=== PATIENT | female | born 1965 | race Caucasian/White ===

== ENCOUNTER 2017-01-13 14:24 | Emergency (ER) | payer OTHER ==
[~2017-01-13] VITALS: Ht 162.6 cm; Wt 78.9 kg
[~2017-01-13 14:24] MED LIST: HYDR-902 PO; ONDA4TAB14 PO; OXYC-279 PO; RANI150T9 PO; TAMS-14 PO
[2017-01-13 14:31] VITALS: Ht 162.6 cm; Wt 78.9 kg
[2017-01-13] MEDS ORDERED: SOD CHLORIDE 0.9% 500 ML IV STA (16:47)
[2017-01-13] MEDS ORDERED: morphine 4 MG/ML VIAL IV STA (16:47)
[2017-01-13 17:41] LABS: ADD SCAN DIFF NO
[2017-01-13 17:43] LABS: ADD UMIC YES; BASOPHIL # 0.1 10^3/ul (0.0-0.1); BASOPHILS % 1.1 % (0.0-2.0); EOSINOPHILS # 0.3 10^3/ul (0.0-0.5); EOSINOPHILS % 4.1 % (0.0-7.0); HEMATOCRIT 41.5 % (37.0-47.0); HEMOGLOBIN 13.6 g/dl (12.0-16.0); LYMPHOCYTES # 2.1 10^3/ul (0.8-2.9); MEAN CORPUSCULAR HEMOGLOBIN 29.8 pg (29.0-33.0); MEAN CORPUSCULAR HGB CONC 32.8 g/dl (32.0-37.0); MEAN CORPUSCULAR VOLUME 90.8 fl (82.0-101.0); MEAN PLATELET VOLUME 12.3 fl (7.4-10.4); MONOCYTE # 0.5 10^3/ul (0.3-0.9); MONOCYTES % 5.7 % (0.0-11.0); NEUTROPHIL # 5.3 10^3/ul (1.6-7.5); NEUTROPHILS % 63.7 % (39.0-77.0); PLATELET COUNT 266 10^3/UL (140-415); RED BLOOD COUNT 4.57 10^6/ul (4.20-5.40); RED CELL DISTRIBUTION WIDTH 12.3 % (11.5-14.5); URINE BILIRUBIN (Dip) NEGATIVE (NEGATIVE); URINE BLOOD (Dip) TRACE (NEGATIVE); URINE COLOR LT. YELLOW (YELLOW); URINE GLUCOSE (Dip) NEGATIVE (NEGATIVE); URINE KETONES (Dip) NEGATIVE (NEGATIVE); URINE LEUKOCYTE ESTERASE (Dip) NEGATIVE (NEGATIVE); URINE NITRITE (Dip) NEGATIVE (NEGATIVE); URINE TOTAL PROTEIN (Dip) NEGATIVE (NEGATIVE); URINE UROBILINOGEN (Dip) 0.2 E.U./dL (0.1-1.0); WHITE BLOOD COUNT 8.4 10^3/ul (4.8-10.8)
[2017-01-13 17:49] LABS: BACTERIA,URINE RARE
[2017-01-13 18:03] LABS: ALBUMIN 4.9 g/dl (3.3-4.9); ALBUMIN/GLOBULIN RATIO 1.48; BILIRUBIN,INDIRECT 0.4 mg/dl (0-1.1); BILIRUBIN,TOTAL 0.4 mg/dl (0.2-1.3); CALCIUM 8.9 mg/dl (8.4-10.2); CREATININE 0.69 mg/dl (0.44-1.00); POTASSIUM 4.8 mmol/L (3.5-5.1); TOTAL PROTEIN 8.2 g/dl (6.1-8.1)
--- NOTE | 2017-01-13 18:22 | RADRPT ---
PROCEDURE: US Pelvis CLINICAL INDICATION: bliat "ovarian" pain x 3 TECHNIQUE: Multiple sonographic images of the pelvis were obtained utilizing a transabdominal and endovaginal technique. The images were reviewed on a PACS workstation. COMPARISON: None. FINDINGS: The uterus is retroverted and measures 7.5 x 4.1 x 5.9 cm. The endometrial echo complex measures 3 mm in thickness. The uterus is heterogeneous and the junctional zone between the endometrium and my ometrium is indistinct. Multiple Nabothian cysts, some with complex fluid, are identified measuring up to 1.5 cm. The right ovary measures 3.5 x 1.7 x 2.6 cm. The left ovary measures 2.7 x 1.5 x 2.3 cm. There is no rmal vascular flow in both ovaries. There is a 1.5 cm simple cystic lesion in the left ovary which i s likely a follicle. No significant pelvic free fluid is identified. IMPRESSION: The uterus is heterogeneous and the junctional zone between the endometrium and myometrium is indist inct. Clinical correlation for adenomyosis is recommended. Multiple Nabothian cysts, some with complex fluid, are identified measuring up to 1.5 cm which are o f equivocal clinical significance. RPTAT: EE Physician Junaid Date Time Electronically viewed and signed by Physician Junaid on 01/13/2017 18:22 /
[2017-01-13] MEDS ORDERED: IBUP800T25 PO (19:29)
[2017-01-13] MEDS ORDERED: MULT1CAP20 PO (19:29)
[2017-01-13] MEDS ORDERED: OMEP40CA6 PO (19:29)
[2017-01-13] MEDS ORDERED: NAPR-688 PO (21:21)
[2017-01-13] MEDS ORDERED: HYDR-906 PO (21:21)
[2017-01-13] MEDS ORDERED: KETOROLAC 30 MG INJ IV STA (21:28)
--- NOTE | 2017-01-13 22:08 | ERD ---
ER Documentation Chief Complaint Date/Time DATE: 01/13/17 TIME: 22:04 Chief Complaint AP X 3 DAYS HPI This 51-year-old female is actually had bilateral pelvic pain for a couple of weeks. It has gotten worse in the last few days. The pain is bilateral and she does not have any suprapubic pain or pain in the middle but has it in her bilateral area where she says her ovaries are. She has no fevers or chills. She has had no nausea and vomiting. No vaginal discharge. Only the pain. ROS All systems reviewed and are negative except as per history of present illness. Medications Home Meds Active Scripts Hydrocodone/Acetaminophen ([place] 5-325 Tablet) 1 Each Tablet, 1 EACH PO Q6, #7 TAB Prov:JOSE MANUEL PRATHER DO 01/13/17 Naproxen* (Naproxen*) 500 Mg Tablet, 500 MG PO BID Y for PAIN, #20 TAB Prov:JOSE MANUEL PRATHER DO 01/13/17 Reported Medications Multivitamin (Multivitamins) 1 Each Capsule, 1 EACH PO, CAP 01/13/17 Omeprazole* (Omeprazole*) 40 Mg Capsule.dr, 40 MG PO QAM, #30 CAP 01/13/17 Ibuprofen* (Ibuprofen*) 800 Mg Tab, 800 MG PO Q6H Y for PAIN, TAB 01/13/17 Discontinued Scripts Oxycodone HCl/Acetaminophen (Percocet 5-325 mg Tablet) 1 Each Tablet, 1 EACH PO Q8 for PAIN LEVEL 8-10, #15 TAB Prov:JAYY CHICAS DO 05/17/16 Ranitidine Hcl* (Zantac*) 150 Mg Tablet, 150 MG PO BID Y for EPIGASTRIC PAIN, # 30 TAB Prov:JAYY CHICAS DO 05/17/16 Ondansetron (Ondansetron Odt) 4 Mg Tab.rapdis, 4 MG PO Q6H Y for NAUSEA AND/OR VOMITING, #10 TAB Prov:DHARA HILLMANSTMT A. DO 05/12/16 Tamsulosin Hcl* (Flomax*) 0.4 Mg Cap.er.24h, 0.4 MG PO BID, #14 CAP Prov:KADYAPOSTOLOS A. DO 05/12/16 Hydrocodone/Acetaminophen ([place] 10-325 Tablet) 1 Each Tablet, 1 TAB PO Q6H Y for PAIN, #20 TAB Prov:ИВАН HILLMAN DO 05/12/16 Allergies Allergies: Coded Allergies: aspirin (Verified Allergy, Unknown, 05/17/16) PMhx/Soc History of Surgery: Yes (cholecystectomy, , R hip sx) Anesthesia Reaction: No Hx Neurological Disorder: No Hx Respiratory Disorders: No Hx Cardiac Disorders: No Hx Psychiatric Problems: No Hx Miscellaneous Medical Probl: Yes (Kidney stone) Hx Alcohol Use: No Hx Substance Use: No Hx Tobacco Use: No Smoking Status: Never smoker Physical Exam Vitals Vital Signs Date Time Temp Pulse Resp B/P Pulse Ox O2 Delivery O2 Flow Rate FiO2 01/13/17 17:25 77 18 135/65 99 01/13/17 14:31 98.3 80 18 130/78 99 Physical Exam Const: [] No distress Head: Atraumatic Eyes: Normal Conjunctiva ENT: Normal External Ears, Nose and Mouth. Resp: Clear to auscultation bilaterally Cardio: Regular rate and rhythm, no murmurs Abd: Soft, mild bilateral pelvic tenderness with no central tenderness, no guarding rebound, no other abdominal tenderness, non distended. Normal bowel sounds Skin: No petechiae or rashes Back: No midline or flank tenderness Ext: No cyanosis, or edema Neur: Awake and alert and oriented 3, no focal deficits Psych: Normal Mood and Affect Result Diagram: 01/13/17 1710 01/13/17 1710 Results 24 hrs Laboratory Tests Test 01/13/17 17:10 White Blood Count 8.410^3/ul Red Blood Count 4.5710^6/ul Hemoglobin 13.6g/dl Hematocrit 41.5% Mean Corpuscular Volume 90.8fl Mean Corpuscular Hemoglobin 29.8pg Mean Corpuscular Hemoglobin Concent 32.8g/dl Red Cell Distribution Width 12.3% Platelet Count 50033^3/UL Mean Platelet Volume 12.3fl Neutrophils % 63.7% Lymphocytes % 25.0% Monocytes % 5.7% Eosinophils % 4.1% Basophils % 1.1% Nucleated Red Blood Cells % 0.0/100WBC Neutrophils # 5.310^3/ul Lymphocytes # 2.110^3/ul Monocytes # 0.510^3/ul Eosinophils # 0.310^3/ul Basophils # 0.110^3/ul Nucleated Red Blood Cells # 0.010^3/ul Urine Color LT. YELLOW Urine Clarity CLEAR Urine pH 5.0 Urine Specific Daisy 1.025 Urine Ketones NEGATIVE Urine Nitrite NEGATIVE Urine Bilirubin NEGATIVE Urine Urobilinogen 0.2 E.U./dL Urine Leukocyte Esterase NEGATIVE Urine Microscopic RBC 5-10/HPF Urine Microscopic WBC 0-2/HPF Urine Bacteria RARE Urine Hemoglobin TRACE Urine Glucose NEGATIVE% Urine Total Protein NEGATIVE Sodium Level 142mmol/L Potassium Level 4.8mmol/L Chloride Level 110mmol/L Carbon Dioxide Level 22mmol/L Anion Gap 15 Blood Urea Nitrogen 16mg/dl Creatinine 0.69mg/dl Glucose Level 112mg/dl Calcium Level 8.9mg/dl Total Bilirubin 0.4mg/dl Direct Bilirubin 0.00mg/dl Indirect Bilirubin 0.4mg/dl Aspartate Amino Transf (AST/SGOT) 33IU/L Alanine Aminotransferase (ALT/SGPT) 28IU/L Alkaline Phosphatase 72IU/L Total Protein 8.2g/dl Albumin 4.9g/dl Globulin 3.30g/dl Albumin/Globulin Ratio 1.48 Lipase 79U/L Current Medications Medications (Trade) Dose Ordered Sig/Beth Route PRN Reason Start Time Stop Time Status Last Admin Dose Admin Sodium Chloride (NS) 500 ml @ 500 mls/hr Q1H STAT IV 01/13/17 16:47 01/13/17 17:46 DC 01/13/17 17:20 Morphine Sulfate (morphine) 4 mg ONCE STAT IV 01/13/17 16:47 01/13/17 16:54 DC 01/13/17 17:20 Ketorolac Tromethamine (Toradol) 30 mg ONCE STAT IV 01/13/17 21:28 01/13/17 21:48 DC Procedures/MDM Bilateral pelvic pain with multiple nabothian cysts. Patient has no signs for serious systemic infection. No evidence of UTI. She is feeling much better the emergency room after 4 mg of morphine. I did give her Toradol as well. Discharge her with instructions for obtaining gynecological follow-up. I am also discharging with naproxen for pain. She is otherwise stable and I have low concern for PID. Pelvic ultrasound interpretation: Unclear transition zone in endometrium possible concern for adenomyosis, multiple nabothian cysts. Good blood flow to bilateral ovaries Departure Diagnosis: Primary Impression: Nabothian cyst Additional Impression: Acute pain in female pelvis Condition: Stable Patient Instructions: Pelvic Pain, Unknown Cause Referrals: [facility] (PCP) Additional Instructions: Llame al doctor MAANA y zahra ray ANMOL PARA DENTRO DE 2-3 HALL. Consigue un referral para un GYNOCOLOGIST. Dgale a la secretaria que nosotros le instruimos hacer esta anmol.Avise o llame si irby condicin se empeora antes de la anmol. Regresa aqui si peor o no mejor. JOSE MANUEL PRATHER DO Jan 13, 2017 22:08
[2017-01-13 22:11] VITALS: BP 160/89; PULSE 88; RESP 18; TEMP 98
== END 2017-01-13 22:12 | disposition home or self-care (01) ==
LOC: E/R 14:24
DX: N88.8 Other specified noninflammatory disorders of cervix uteri (principal)
CPT/HCPCS: 76830; 76856; 80053; 81001; 83690; 85025; J2270; J7040; 36415; 96374

== ENCOUNTER 2017-06-20 09:29 | Emergency (ER) | payer OTHER ==
[~2017-06-20] VITALS: Ht 165.1 cm; Wt 77.2 kg
[~2017-06-20 09:29] MED LIST changes: -HYDR-902 PO; +HYDR-906 PO; +IBUP800T25 PO; +MULT1CAP20 PO; +NAPR-688 PO; +OMEP40CA6 PO; -ONDA4TAB14 PO; -OXYC-279 PO; -RANI150T9 PO; -TAMS-14 PO
[2017-06-20 09:31] VITALS: Ht 165.1 cm; Wt 77.2 kg
[2017-06-20] MEDS ORDERED: ONDANSETRON (ODT) 4 MG TAB ODT STA (09:57)
[2017-06-20] MEDS ORDERED: HYDROCODONE/APAP (10/325) TAB PO ONE (10:00)
[2017-06-20 10:34] LABS: ADD UMIC YES; UR ASCORBIC ACID NEGATIVE (NEGATIVE); UR BACTERIA FEW /HPF (NONE SEEN); UR BILIRUBIN (Dip) NEGATIVE (NEGATIVE); UR BLOOD (Dip) 1+ mg/dL (NEGATIVE); UR CLARITY SLIGHTLY CLOUDY (CLEAR); UR COLOR YELLOW (YELLOW); UR GLUCOSE (Dip) NEGATIVE (NEGATIVE); UR KETONES (Dip) NEGATIVE (NEGATIVE); UR LEUKOCYTE ESTERASE (Dip) TRACE Leu/ul (NEGATIVE); UR MUCUS MODERATE /HPF (NONE SEEN); UR NITRITE (Dip) NEGATIVE (NEGATIVE); UR RBC 1 /HPF (0-5); UR SPECIFIC GRAVITY (Dip) 1.021 (1.003-1.030); UR SQUAMOUS EPITHELIAL CELL MODERATE /HPF (FEW); UR TOTAL PROTEIN (Dip) NEGATIVE (NEGATIVE); UR UROBILINOGEN (Dip) 1+ mg/dL (NEGATIVE)
--- NOTE | 2017-06-20 11:12 | RADRPT ---
PROCEDURE: CT ABDOMEN AND PELVIS WITHOUT CONTRAST. CLINICAL INDICATION: Abdominal pain TECHNIQUE: CT scan of the abdomen and pelvis without contrast was performed on a multidetector hig h-resolution CT scanner. The patient was scanned without intravenous contrast. Coronal and sagittal reformatted images were obtained from the axial source images. Images were reviewed on a high-resol [employer] PACS workstation. The total exam CTDI equals 15 mGy and the total exam DLP equals 836 mGy-cm. One or more of the following dose reduction techniques were used: Automated exposure control. Adjustment of the mA and/or kV according to patient size. Use of iterative reconstruction technique. DICOM images are available COMPARISON: CT 05/15/2016 FINDINGS: CT abdomen: Right lower lobe calcified granulomas noted. Lung bases are clear. Heart size is within normal limit s. There is no significant pericardial effusion. Hepatic morphology is within limits. No gross contour deforming masses. Status post cholecystectomy. Small foci of air is noted within the common bile duct. The spleen and pancreas are within normal limits. Both adrenal glands are within normal limits. Both kidneys are in normal anatomic position. No evidence of obstruction or hydronephrosis. No gross renal/ureteric calculi. The visualized GI tract demonstrate normal caliber loops of small and large bowel. No evidence of nathalia wel obstruction. The appendix is within normal limits. The unenhanced aorta is unremarkable. No significant retroperitoneal lymphadenopathy. CT pelvis: The bladder is within normal limits. There is a fat-containing right inguinal hernia. The uterus is retroverted. The rectosigmoid colon is within limits. No significant free fluid. No significant pelv ic lymphadenopathy. The visualized osseous structures demonstrates right hip hardware and sclerosis of the bilateral SI joints. Multilevel degenerative disease of the lumbosacral spine is noted. The visualized osseous structures appear to be within normal limits. IMPRESSION: 1. Status post cholecystectomy. Small foci of air is noted within the common bile duct, stable since prior exam. 2. No evidence of acute intra-abdominal/pelvic inflammatory process. No evidence of bowel. The appen michael is within limits. 3. No gross renal/ureteric calculi. No obstruction or hydronephrosis. 4. No free fluid or free air. No gross focal fluid collections. 5. Fat-containing right inguinal hernia. Otherwise, unremarkable unenhanced CT scan of the abdomen/p annette. RPTAT: AAPP Indra Hussein, Physician Date Time Electronically viewed and signed by Indra Hussein Physician on 06/20/2017 11:11 JL/
[2017-06-20] MEDS ORDERED: HYDR-902 PO (11:39)
[2017-06-20] MEDS ORDERED: ONDA4TAB14 PO (11:39)
--- NOTE | 2017-06-20 13:44 | ERD ---
ER Documentation Chief Complaint Chief Complaint Complaqins of abdominal pain x 3 days HPI Patient is a 52-year-old female with kidney stones who presents with abdominal pain. The patient had the symptoms for the past 15 days. The patient makes a little bit of blood in the urine. The patient has had fever that started on Friday and lasted 2 days but has not had fever for the past few days. She tried Tylenol and ibuprofen. The pain is constant. Upon review of old medical records the patient has had 11 visits since 2014 for pain complaints. She does have a primary doctor. ROS All systems reviewed and are negative except as per history of present illness. Medications Home Meds Active Scripts Ondansetron (Ondansetron Odt) 4 Mg Tab.rapdis, 4 MG PO Q6H Y for NAUSEA AND/OR VOMITING, #10 TAB Prov:RAMONITA HUFFMAN MD 06/20/17 Hydrocodone/Acetaminophen ([place] 10-325 Tablet) 1 Each Tablet, 1 TAB PO Q6H Y for PAIN, #7 TAB Prov:RAMONITA HUFFMAN MD 06/20/17 Hydrocodone/Acetaminophen ([place] 5-325 Tablet) 1 Each Tablet, 1 EACH PO Q6, #7 TAB Prov:JOSE MANUEL PRATHER DO 01/13/17 Naproxen* (Naproxen*) 500 Mg Tablet, 500 MG PO BID Y for PAIN, #20 TAB Prov:JOSE MANUEL PRATHER DO 01/13/17 Reported Medications Multivitamin (Multivitamins) 1 Each Capsule, 1 EACH PO, CAP 01/13/17 Omeprazole* (Omeprazole*) 40 Mg Capsule.dr, 40 MG PO QAM, #30 CAP 01/13/17 Ibuprofen* (Ibuprofen*) 800 Mg Tab, 800 MG PO Q6H Y for PAIN, TAB 01/13/17 Allergies Allergies: Coded Allergies: aspirin (Verified Allergy, Unknown, 05/17/16) PMhx/Soc History of Surgery: Yes (cholecystectomy, , R hip sx) Anesthesia Reaction: No Hx Neurological Disorder: No Hx Respiratory Disorders: No Hx Cardiac Disorders: No Hx Psychiatric Problems: No Hx Miscellaneous Medical Probl: Yes (Kidney stone) Hx Alcohol Use: No Hx Substance Use: No Hx Tobacco Use: No Smoking Status: Never smoker FmHx Family History: diabetes Physical Exam Vitals Vital Signs Date Time Temp Pulse Resp B/P Pulse Ox O2 Delivery O2 Flow Rate FiO2 06/20/17 09:31 98.7 105 20 130/78 96 Physical Exam Const: Moderate distress secondary to pain Head: Atraumatic Eyes: Normal Conjunctiva ENT: Normal External Ears, Nose and Mouth. Neck: Full range of motion..~ No meningismus. Resp: Clear to auscultation bilaterally Cardio: Regular rate and rhythm, no murmurs Abd: Soft, non tender, non distended. Normal bowel sounds Skin: No petechiae or rashes Back: No midline or flank tenderness Ext: No cyanosis, or edema Neur: Awake and alert Psych: Normal Mood and Affect Results 24 hrs Laboratory Tests Test 06/20/17 10:00 Urine Color YELLOW Urine Clarity SLIGHTLY CLOUDY Urine pH 5.0 Urine Specific [place] 1.021 Urine Ketones NEGATIVEmg/dL Urine Nitrite NEGATIVEmg/dL Urine Bilirubin NEGATIVEmg/dL Urine Urobilinogen 1+mg/dL Urine Leukocyte Esterase TRACELeu/ul Urine Microscopic RBC 1/HPF Urine Microscopic WBC 3/HPF Urine Squamous Epithelial Cells MODERATE/HPF Urine Bacteria FEW/HPF Urine Mucus MODERATE/HPF Urine Hemoglobin 1+mg/dL Urine Glucose NEGATIVEmg/dL Urine Total Protein NEGATIVEmg/dl Current Medications Medications (Trade) Dose Ordered Sig/Beth Route PRN Reason Start Time Stop Time Status Last Admin Dose Admin Acetaminophen/ Hydrocodone Bitart ([place]ino[place] (10325)) 1 tab ONCE ONCE PO 06/20/17 10:00 06/20/17 10:01 DC 06/20/17 10:01 Ondansetron HCl (Zofran Odt) 4 mg ONCE STAT ODT 06/20/17 09:57 06/20/17 09:58 DC 06/20/17 10:01 Procedures/MDM CT abdomen pelvis shows no acute abnormality per radiology. Patient is a 52-year-old female who presents with abdominal pain. Urinalysis shows no sign of obvious infection and CT abdomen pelvis shows no sign of kidney stone or bowel obstruction. I doubt cholecystitis, pancreatitis, appendicitis, or bowel obstruction. I believe outpatient management is appropriate. The patient can return for any worsening symptoms. She will be given a prescription for pain and nausea medications. She can return for any worsening symptoms. She should follow-up with primary doctor within 24 hours. Departure Diagnosis: Primary Impression: Abdominal pain Abdominal location: generalized Qualified Code: R10.84 - Generalized abdominal pain Condition: Fair Patient Instructions: Abdominal Pain Referrals: [facility] (PCP) Additional Instructions: Llame al doctor MAANA y zahra ray ANMOL PARA DENTRO DE 1-2 HALL.Dgale a la secretaria que nosotros le instruimos hacer esta anmol.Avise o llame si irby condicin se empeora antes de la anmol. Regresa aqui si peor o no mejor. RAMONITA HUFFMAN MD Jun 20, 2017 13:44
== END 2017-06-20 12:03 | disposition home or self-care (01) ==
LOC: E/R 09:29
DX: R10.84 Generalized abdominal pain (principal)
CPT/HCPCS: 74176; 81001; Z7502; Z7610

== ENCOUNTER 2017-09-06 00:42 | Emergency (ER) | END 2017-09-06 05:44 | disposition home or self-care (01) ==

== ENCOUNTER 2018-06-18 09:30 | Inpatient (IN) | payer OTHER ==
[~2018-06-18] VITALS: Ht 157.5 cm; Wt 75.0 kg
[~2018-06-18 09:30] MED LIST changes: +ACET325T33 PO; +AMLO5TAB4 PO; +ASPI-817 PO; +BUPIVACAINE 0.5% (SDV) 30 ML, morphine SULFATE (PF) 8 MG, EPINEPHrine 0.3 MG, KETOROLAC... IRR SCH; +CEFAZOLIN 2 GM/50 ML (PMX) 50 ML IVPB ONE; +CEPH500C PO; +D-ME473S2 PO; +DEXAMETHASONE 1 MG TAB PO ONE; +GABAPENTIN 300 MG CAP PO ONE; -HYDR-906 PO; +IBUP-1542 PO; -IBUP800T25 PO; +LACT1CAP28 PO; +LOSA25TA12 PO; +MECL12.574 PO; +METF-849 PO; -NAPR-688 PO; -OMEP40CA6 PO; +RANI150T5 PO; +SOD CHLORIDE 0.9% 100 ML, TRANEXAMIC ACID 3,000 MG IRR ONE; +TRANEXAMIC ACID 1,000 MG in DEXTROSE 5% 100 ML IVPB ONE; +traMADol 50 MG TAB PO ONE
[2019-06-02] MEDS ORDERED: TRANEXAMIC ACID 1GM/100ML(PMX) 100 ML IVPB ONE (06:00)
[2019-06-03] VITALS (23 sets, daily range): BP systolic 95–138; BP diastolic 60–81; PULSE 60–102; RESP 9–18; Ht 157.5 cm; Wt 75.0 kg
[2019-06-03] MEDS ORDERED: DEXAMETHASONE 1 MG TAB PO SCH (06:00)
[2019-06-03] MEDS: LACTATED RINGER'S 1,000 ML IV SCH ×3 (06:00→23:54)
[2019-06-03] MEDS ORDERED: SOD CHLORIDE 0.9% 100 ML, TRANEXAMIC ACID 3,000 MG IRR SCH ×2 (06:00)
[2019-06-03] MEDS ORDERED: BUPIVACAINE 0.5% (SDV) 30 ML, morphine SULFATE (PF) 8 MG, EPINEPHrine 0.3 MG, KETOROLAC... IRR SCH ×7 (06:00)
[2019-06-03] MEDS ORDERED: GABAPENTIN 300 MG CAP PO SCH ×2 (06:00→21:00)
[2019-06-03] MEDS ORDERED: CEFAZOLIN 2 GM/50 ML (PMX) 50 ML IVPB SCH (06:00)
[2019-06-03] MEDS ORDERED: DESFLURANE 15 MIN ONE (07:00)
[2019-06-03] MEDS ORDERED: traMADol 50 MG TAB ONE (10:14)
[2019-06-03] MEDS ORDERED: traMADol 50 MG TAB PO ONE (10:30)
[2019-06-03] MEDS ORDERED: CA CHLORIDE 10% 10 ML SYRINGE ONE (10:54)
[2019-06-03] MEDS ORDERED: POLYMYXIN/BACITRACIN 1L IRRIG ONE (10:54)
[2019-06-03] MEDS ORDERED: THROMBIN 5000 UNIT (RECOTHROM) VIAL ONE (10:54)
[2019-06-03] MEDS ORDERED: GLYCOPYRROLATE 0.4 MG INJ ONE (11:09)
[2019-06-03] MEDS ORDERED: ROCURONIUM 50 MG INJ ONE (11:09)
[2019-06-03] MEDS ORDERED: PROPOFOL 20 ML ONE (11:09)
[2019-06-03] MEDS ORDERED: NEOSTIGMINE 3 MG/3 ML SYRINGE ONE (11:09)
[2019-06-03] MEDS ORDERED: CEFAZOLIN 1 GM INJ ONE (11:09)
[2019-06-03] MEDS ORDERED: morphine SULFATE/PF (10 MG/10 ML) INJ ONE (11:10)
[2019-06-03] MEDS ORDERED: FENTAnyl 50 MCG/ML VIAL ONE (11:10)
[2019-06-03] MEDS ORDERED: ONDANSETRON 4 MG INJ ONE (11:10)
[2019-06-03] MEDS ORDERED: DEXAMETHASONE 4 MG/ML 5 ML INJ ONE (11:10)
[2019-06-03] MEDS ORDERED: MIDAZOLAM 1 MG/ML 2 ML INJ ONE (11:10)
[2019-06-03] MEDS ORDERED: SUGAMMADEX SODIUM 200 MG/2 ML VIAL IV ONE (11:12)
[2019-06-03] MEDS ORDERED: TRANEXAMIC ACID 1GM/100ML(PMX) 200 ML ONE (12:05)
[2019-06-03] MEDS ORDERED: NACL 0.9% 3 ML SYG IV SCH (14:00)
[2019-06-03] MEDS ORDERED: MAGNESIUM HYDROXIDE 30ML CUP PO PRN (14:00)
[2019-06-03] MEDS ORDERED: DIPHENHYDRAMINE 50 MG INJ IV PRN (14:00)
[2019-06-03] MEDS ORDERED: HYDROmorphONE 1 MG/ML SYG IV PRN (14:00)
[2019-06-03] MEDS ORDERED: RANITIDINE 150 MG TAB PO PRN ×2 (14:00)
[2019-06-03] MEDS ORDERED: ZOLPIDEM 5 MG TAB PO PRN (14:00)
[2019-06-03] MEDS ORDERED: oxyCODONE 5 MG TAB PO PRN ×3 (14:00)
[2019-06-03] MEDS ORDERED: ONDANSETRON 4 MG INJ IV PRN (14:00)
[2019-06-03] MEDS ORDERED: GLUCAGON 1 MG INJ IM PRN (14:30)
[2019-06-03] MEDS ORDERED: GLUCOSE GEL 15 GRAM TUBE BUCCAL PRN (14:30)
[2019-06-03] MEDS ORDERED: DEXTROSE 50% 50 ML SYRINGE IV PRN ×2 (14:30)
[2019-06-03] MEDS ORDERED: GLUCOSE GEL 15 GRAM TUBE PO PRN ×2 (14:30)
[2019-06-03] MEDS: CEFAZOLIN 1 GM/50 ML (PMX) 50 ML IVPB SCH ×2 (14:41→21:10)
[2019-06-03] MEDS: ACETAMINOPHEN 1000MG/100ML IV 100 ML IVPB SCH ×2 (14:41→21:09)
[2019-06-03] MEDS: ACCU-CHEK XX SCH (17:47)
[2019-06-03] MEDS: DEXAMETHASONE 2 MG TAB PO SCH (17:53)
[2019-06-03] MEDS: metFORMIN 500 MG TAB PO SCH (17:53)
[2019-06-03] MEDS: SENNA/DOCUSATE NA (8.6MG/50MG) TAB PO SCH (20:20)
[2019-06-04] MEDS: DEXAMETHASONE 2 MG TAB PO SCH ×3 (00:06→11:54)
[2019-06-04 00:47] VITALS: BP 92/52; PULSE 60; RESP 18
[2019-06-04] MEDS: LACTATED RINGER'S 1,000 ML IV SCH ×2 (02:19→06:00)
[2019-06-04] MEDS: CEFAZOLIN 1 GM/50 ML (PMX) 50 ML IVPB SCH (05:08)
[2019-06-04] MEDS: ACETAMINOPHEN 1000MG/100ML IV 100 ML IVPB SCH (05:10)
[2019-06-04] MEDS: ACCU-CHEK XX SCH ×2 (07:43→18:09)
[2019-06-04 07:54] VITALS: BP 100/61; PULSE 66; RESP 17
[2019-06-04] MEDS: metFORMIN 500 MG TAB PO SCH ×2 (08:33→18:09)
[2019-06-04] MEDS: SENNA/DOCUSATE NA (8.6MG/50MG) TAB PO SCH (08:33)
[2019-06-04 08:36] VITALS: BP 108/64; PULSE 83; RESP 18
[2019-06-04] MEDS ORDERED: AMLODIPINE 5 MG TAB PO SCH (09:00)
[2019-06-04] MEDS ORDERED: ASPIRIN (EC) 325 MG TAB PO SCH (09:00)
[2019-06-04] MEDS ORDERED: LOSARTAN 25 MG TAB PO SCH ×2 (09:00)
[2019-06-05] MEDS ORDERED: MAGNESIUM HYDROXIDE 30ML CUP PO SCH (21:00)
== END 2019-06-04 19:23 | disposition home or self-care (01) | DRG 470 ==
LOC: EDSTATUS 09:30 → REC 06-03 08:11 → MS1 06-03 15:30
PROVIDERS: ADMIT Orthopaedic Surgery; ATTEND Orthopaedic Surgery
PROC: 0SP904Z Removal of Internal Fixation Device from Right Hip Joint, Open Approach (ICD-10-PCS; 2019-06-03)
PROC: 0SR904A Replacement of Right Hip Joint with Ceramic on Polyethylene Synthetic Substitute, Uncemented, Open Approach (ICD-10-PCS; principal; 2019-06-03 12:00)
DX: M16.51 Unilateral post-traumatic osteoarthritis, right hip (principal); I10 Essential (primary) hypertension; E11.9 Type 2 diabetes mellitus without complications; K21.9 Gastro-esophageal reflux disease without esophagitis
CPT/HCPCS: 72170; 73530; 82962; 85025; 86999; 87086; 88300; 88304; 88311; 97116; 97162; 97530; C1713; C1776; J0131; J0171; J0690; J0735; J1100; J1885; J2250; J2274; J2405; J2710; J3010; J3370; J7120

== ENCOUNTER 2018-12-25 13:57 | Emergency (ER) | payer OTHER ==
[~2018-12-25] VITALS: Ht 162.6 cm; Wt 77.3 kg
[~2018-12-25 13:57] MED LIST changes: -ACET325T33 PO; -AMLO5TAB4 PO; -ASPI-817 PO; -BUPIVACAINE 0.5% (SDV) 30 ML, morphine SULFATE (PF) 8 MG, EPINEPHrine 0.3 MG, KETOROLAC... IRR SCH; -CEFAZOLIN 2 GM/50 ML (PMX) 50 ML IVPB ONE; -CEPH500C PO; -DEXAMETHASONE 1 MG TAB PO ONE; -GABAPENTIN 300 MG CAP PO ONE; -IBUP-1542 PO; -LACT1CAP28 PO; -LOSA25TA12 PO; -MECL12.574 PO; -METF-849 PO; -RANI150T5 PO; -SOD CHLORIDE 0.9% 100 ML, TRANEXAMIC ACID 3,000 MG IRR ONE; -TRANEXAMIC ACID 1,000 MG in DEXTROSE 5% 100 ML IVPB ONE; -traMADol 50 MG TAB PO ONE
[2018-12-25 14:00] VITALS: BP 160/76; PULSE 94; RESP 17; Ht 162.6 cm; Wt 77.3 kg
[2018-12-25] MEDS ORDERED: MECL12.574 PO ×2 (16:20→16:25)
--- NOTE | 2018-12-25 16:24 | ERD ---
ER Documentation Chief Complaint Chief Complaint DIZZINESS X2 DAYS, HEADACHE HPI Patient is a 53-year-old female with hypertension who presents with dizziness. She feels like the room is spinning. She said the symptoms for the past 2 days. It comes and goes and is worse with moving her head. She felt like she might fall. She has had no treatment as of yet. She was scared last night because the dizziness which made her come to the ER. Upon review of old medical records the patient has had multiple visits to the ER for various complaints. She does not remember the name of her primary doctor. ROS All systems reviewed and are negative except as per history of present illness. Medications Home Meds Active Scripts Meclizine Hcl* (Antivert*) 12.5 Mg Tab, 25 MG PO Q6H PRN for DIZZINESS, #20 TAB Prov:RAMONITA HUFFMAN MD 12/25/18 Meclizine Hcl* (Antivert*) 12.5 Mg Tab, 25 MG PO Q6H PRN for DIZZINESS, #20 TAB Prov:RAMONITA HUFFMAN MD 12/25/18 Dextromethorphan Hb-Promethazine Hcl* (Promethazine DM* Syrup) 473 Ml Syrup, 10 ML PO Q6 PRN for COUGH, #120 ML Prov:EVIE GAINES MD 09/06/17 Reported Medications Multivitamin (Multivitamins) 1 Each Capsule, 1 EACH PO, CAP 01/13/17 Allergies Allergies: Coded Allergies: aspirin (Unverified Allergy, Unknown, CAN'T BREATHE, 06/17/18) PT CAN'T BREATHE WITH ASPIRIN/ROHAN AT MD OFFICE PMhx/Soc History of Surgery: Yes (cholecystectomy, , R hip sx) Anesthesia Reaction: No Hx Neurological Disorder: No Hx Respiratory Disorders: No Hx Cardiac Disorders: No Hx Psychiatric Problems: No Hx Miscellaneous Medical Probl: Yes (Kidney stone/ pre-diabetes) Hx Alcohol Use: No Hx Substance Use: No Hx Tobacco Use: No FmHx Family History: diabetes Physical Exam Vitals Vital Signs Date Temp Pulse Resp B/P (MAP) Pulse Ox O2 O2 Flow FiO2 Time Delivery Rate 12/25/18 98.3 94 17 160/76 98 14:00 (104) Physical Exam Const: No acute distress Head: Atraumatic Eyes: Normal Conjunctiva ENT: Normal External Ears, Nose and Mouth. Neck: Full range of motion. No meningismus. Resp: Clear to auscultation bilaterally Cardio: Regular rate and rhythm, no murmurs Abd: Soft, non tender, non distended. Normal bowel sounds Skin: No petechiae or rashes Back: No midline or flank tenderness Ext: No cyanosis, or edema Neur: Awake and alert, cranial nerves II through XII are intact, strength is 5 out of 5 in all 4 extremities, no slurred speech, no pronator drift Psych: Normal Mood and Affect Results 24 hrs Current Medications Medications Dose Sig/Beth Start Time Status Last (Trade) Ordered Route PRN Stop Time Admin Dose Reason Admin Meclizine 25 mg ONCE ONCE 12/25/18 DC 12/25/18 HCl PO 16:30 16:35 (Antivert) 12/25/18 16:32 Procedures/MDM EKG read by me: Rate/Rhythm: Regular rate and rhythm at a rate of 84 Intervals: Normal Impression: No evidence of ischemia or arrhythmia Patient is a 53-year-old female who presents with dizziness. Her symptoms are consistent with vertigo. EKG is normal. I doubt acute coronary syndrome or stroke. I believe the risk of doing a CT scan of the brain outweigh the benefits. The patient will be discharged with prescription for meclizine. She will need to follow-up with her primary doctor however within 24 to 48 hours for reevaluation. She can return for any worsening symptoms. Departure Diagnosis: Primary Impression: Dizziness Condition: Fair Patient Instructions: Dizziness (Vertigo) and Balance Problems: Ensuring Your Safety, Dizziness, Unk Cause Referrals: [facility] (PCP) Additional Instructions: Llame al doctor MAANA y zahra ray ANMOL PARA DENTRO DE 1-2 HALL.Dgale a la secretaria que nosotros le instruimos hacer esta anmol.Avise o llame si irby condicin se empeora antes de la anmol. Regresa aqui si peor o no mejor. RAMONITA HUFFMAN MD December 25, 2018 16:24
[2018-12-25] MEDS ORDERED: MECLIZINE 12.5 MG TAB PO ONE (16:30)
== END 2018-12-25 17:30 | disposition home or self-care (01) ==
LOC: E/R 13:57
DX: R42 Dizziness and giddiness (principal); R40.2142 Coma scale, eyes open, spontaneous, at arrival to emergency department; R40.2362 Coma scale, best motor response, obeys commands, at arrival to emergency department; R40.2252 Coma scale, best verbal response, oriented, at arrival to emergency department; I10 Essential (primary) hypertension
CPT/HCPCS: Z7502; Z7610

== ENCOUNTER 2019-03-19 01:01 | Emergency (ER) | payer OTHER ==
[~2019-03-19] VITALS: Ht 162.6 cm; Wt 78.8 kg
[~2019-03-19 01:01] MED LIST changes: +MECL12.574 PO
[2019-03-19 01:06] VITALS: Ht 162.6 cm; Wt 78.8 kg
--- NOTE | 2019-03-19 01:44 | ERD ---
ER Documentation Chief Complaint Chief Complaint C/O LANG, DIZZINESS HPI The patient is a 53-year-old female presenting to the ER with multiple complaints, complains of dizziness, headache that began around 10:30p til 2 AM, has similar symptoms previously, denies fever, blurred vision, facial pain, neck pain, chest pain with vomiting/radiation/exertion/diaphoresis, abdominal pain, vomiting, dysuria, diarrhea. She does not smoke, drinks socially, has a lot of stress in her life at this time about incoming surgery of the right hip Past medical history: Hypertension Past surgical history: 3 , cholecystectomy ROS All systems reviewed and are negative except as per history of present illness. Medications Home Meds Active Scripts Meclizine Hcl* (Antivert*) 12.5 Mg Tab, 25 MG PO Q6H PRN for DIZZINESS, #20 TAB Prov:RAMONITA HUFFMAN MD 12/25/18 Meclizine Hcl* (Antivert*) 12.5 Mg Tab, 25 MG PO Q6H PRN for DIZZINESS, #20 TAB Prov:RAMONITA HUFFMAN MD 12/25/18 Dextromethorphan Hb-Promethazine Hcl* (Promethazine DM* Syrup) 473 Ml Syrup, 10 ML PO Q6 PRN for COUGH, #120 ML Prov:EVIE GAINES MD 09/06/17 Reported Medications Multivitamin (Multivitamins) 1 Each Capsule, 1 EACH PO, CAP 01/13/17 Allergies Allergies: Coded Allergies: aspirin (Unverified Allergy, Unknown, CAN'T BREATHE, 06/17/18) PT CAN'T BREATHE WITH ASPIRIN/ROHAN AT MD OFFICE PMhx/Soc History of Surgery: Yes (cholecystectomy, , R hip sx) Anesthesia Reaction: No Hx Neurological Disorder: No Hx Respiratory Disorders: No Hx Cardiac Disorders: No Hx Psychiatric Problems: No Hx Miscellaneous Medical Probl: Yes (Kidney stone/ pre-diabetes) Hx Alcohol Use: No Hx Substance Use: No Hx Tobacco Use: No Physical Exam Vitals Vital Signs Date Temp Pulse Resp B/P (MAP) Pulse Ox O2 O2 Flow FiO2 Time Delivery Rate 03/19/19 98.6 70 15 148/81 98 Room Air 04:04 (103) 03/19/19 98.6 66 15 157/104 98 Room Air 01:53 (121) 03/19/19 98.6 86 21 179/88 98 01:06 (118) Physical Exam Const: No acute distress. Head: Atraumatic. Eyes: Normal Conjunctiva. ENT: Normal External Ears, Nose and Mouth. Neck: Full range of motion. No meningismus. Resp: Clear to auscultation bilaterally. Cardio: Regular rate and rhythm. Abd: Soft, non distended, normal bowel sounds, non tender. Skin: No petechiae or rashes. Back: No midline or flank tenderness. Ext: No cyanosis, or edema. Neur: Awake and alert. No focal deficit Psych: Anxious Result Diagram: 03/19/19 0145 03/19/19 0145 Results 24 hrs Laboratory Tests Test 03/19/19 01:45 03/19/19 02:00 White Blood Count 8.0 10^3/ul Red Blood Count 4.29 10^6/ul Hemoglobin 13.1 g/dl Hematocrit 38.8 % Mean Corpuscular Volume 90.4 fl Mean Corpuscular Hemoglobin 30.5 pg Mean Corpuscular Hemoglobin Concent 33.8 g/dl Red Cell Distribution Width 11.6 % Platelet Count 231 10^3/UL Mean Platelet Volume 13.1 fl Immature Granulocytes % 0.200 % Neutrophils % 55.8 % Lymphocytes % 32.9 % Monocytes % 7.0 % Eosinophils % 3.4 % Basophils % 0.7 % Nucleated Red Blood Cells % 0.0 /100WBC Immature Granulocytes # 0.020 10^3/ul Neutrophils # 4.5 10^3/ul Lymphocytes # 2.6 10^3/ul Monocytes # 0.6 10^3/ul Eosinophils # 0.3 10^3/ul Basophils # 0.1 10^3/ul Nucleated Red Blood Cells # 0.0 10^3/ul Sodium Level 142 mmol/L Potassium Level 3.9 mmol/L Chloride Level 102 mmol/L Carbon Dioxide Level 32 mmol/L Anion Gap 8 Blood Urea Nitrogen 17 mg/dl Creatinine 0.81 mg/dl Est Glomerular Filtrat Rate mL/min > 60 mL/min Glucose Level 117 mg/dl Calcium Level 9.8 mg/dl Troponin I < 0.012 ng/ml Bedside Urine pH (LAB) 7.0 Bedside Urine Protein (LAB) Negative Bedside Urine Glucose (UA) Negative Bedside Urine Ketones (LAB) Negative Bedside Urine Blood Trace-lysed Bedside Urine Nitrite (LAB) Negative Bedside Urine Leukocyte Esterase (L Negative Procedures/MDM [place] [id number] Radiology Main Line: [phone] DIAGNOSTIC IMAGING REPORT Patient: DONTAE RODRIGUEZ : 1965 Age: 53 Sex: F MR #: [id number] DOS: 03/19/19 0214 Ordering MD: EVIE GAINES MD Location: E/R Room/Bed: PROCEDURE: CT Brain without contrast. CLINICAL INDICATION: Syncope. TECHNIQUE: A CT of the brain was performed utilizing axial imaging from the skull base through the vertex without IV contrast. Multiplanar reformatted images were made. Images were reviewed on a PACS workstation. The CTDIvol is 3 9.25 mGy and the DLP is 634.23 mGycm. DICOM images are available. One or more of the following dose reduction techniques were utilized: 1.) Automated exposure control 2.) Adjustment of the mA +/- kV according to patient's size 3.) Use of iterative reconstruction technique. COMPARISON: None FINDINGS: There is no intracranial hemorrhage, mass effect, or midline shift. No extra- axial fluid collection is seen. The ventricles and sulci are normal in size and configuration. The density of the brain is normal, and the brooke white matter differentiation appears well-preserved. The visualized paranasal sinuses and osseous structures are grossly unremarkable. IMPRESSION: 1. No evidence of acute intracranial pathology. 2. The brain is normal in appearance. RPTAT: [facility] Physician Kaci Date Time Electronically viewed and signed by Physician Kaci on 03/19/2019 03:03 RS/ CC: EVIE GAINES MD [id number] [place] [address] Radiology Main Line: [phone] DIAGNOSTIC IMAGING REPORT Patient: DONTEA RODRIGUEZ : 1965 Age: 53 Sex: F MR #: [id number] DOS: 03/19/19 0214 Ordering MD: EVIE GAINES MD Location: E/R Room/Bed: PROCEDURE: XR Chest. CLINICAL INDICATION: Syncope. TECHNIQUE: Single frontal view of the chest. COMPARISON: 05/15/2016. FINDINGS: The cardiomediastinal silhouette is within normal limits. Improved lung inflation over interval. The lungs are clear. No signs of pleural fluid or pneumothorax are seen. The osseous structures and soft tissues are unremarkable. IMPRESSION: No evidence for active cardiopulmonary disease. RPTAT: [facility] Physician Kaci Date Time Electronically viewed and signed by Laura Almodovar Physician on 03/19/2019 03:27 RS/ CC: EVIE GAINES MD [id number] EK:06 AM read by emergency physician Rate/Rhythm: Normal Sinus Rhythm 64 beats/min QRS, ST, T-waves: No ST elevation, no T inversion Impression: Normal EKG EK:46 AM read by emergency physician Rate/Rhythm: Normal Sinus Rhythm 66 beats/min QRS, ST, T-waves: No ST elevation, no T inversion Impression: Normal EKG MEDICAL MAKING DECISION: The patient is a 53-year-old female, presenting with acute dizziness that resolved, unknown etiology, most likely due to acute distress, is stable for outpatient follow-up The differential diagnoses considered include but are not limited to central causes such as cerebellar infarct, cerebellar hemorrhage, cerebellar tumor, acoustic neuroma, peripheral causes such as benign positional vertigo, labyrinthitis, medication, Meniere's disease. Departure Diagnosis: Primary Impression: Dizziness Additional Impression: Stress Condition: Good Comments I discussed the findings with the patient. I advised the patient to follow-up with the primary physician in about 1-2 days, sooner if needed and return if any concern. Disclaimer: Inadvertent spelling and grammatical errors are likely due to EHR/dictation software use and do not reflect on the overall quality of patient care. Also, please note that the electronic time recorded on this note does not necessarily reflect the actual time of the patient encounter. EVIE GAINES MD Mar 19, 2019 01:44
[2019-03-19 04:04] VITALS: BP 148/81; PULSE 70; RESP 15
== END 2019-03-19 04:06 | disposition home or self-care (01) ==
LOC: E/R 01:01
DX: R42 Dizziness and giddiness (principal); F43.9 Reaction to severe stress, unspecified; I10 Essential (primary) hypertension
CPT/HCPCS: 70450; 71045; 80048; 81003; 84484; 85025; 93005; Z7610; 36415